=== PATIENT | female | born 1950 | race Caucasian/White ===

== ENCOUNTER 2016-09-28 12:41 | Day surgery (SDC) | payer OTHER ==
[2016-09-22 10:58] LABS: HEMATOCRIT 42.3 % (36.0-48.0); HEMOGLOBIN 14.7 g/dL (12.0-16.0)
[2016-09-22 11:08] LABS: BUN (BLOOD UREA NITROGEN) 7 MG/DL (6-23); CHLORIDE, SERUM 94 MMOL/L (96-112); CO2 (CARBON DIOXIDE) 29 MMOL/L (24-34); CREATININE 0.97 MG/DL (0.55-1.02); GFR AFRICAN AMERICAN 72 ML/MIN (>=60); GFR NON AFRICAN AMERICAN 62 ML/MIN (>=60); GLUCOSE, SERUM 180 MG/DL (60-99); POTASSIUM, SERUM 5.3 MMOL/L (3.5-5.3); SODIUM, SERUM 130 MMOL/L (135-148)
--- NOTE | ~2016-09-28 | OP ---
Record Of Operation [facility] [address] [place]. [address] NAME: ZACKERY GROVES : 54 STATUS : [facility]#: [id number] AGE: 65 ADM/REG DATE : 09/28/16 MR#: [id number] REPORT SERV DATE: 09/29/16 DICTATED BY: DEJA ESTRELLA DATE: 09/28/16 REPORT STATUS : Draft TRANSCRIBED BY: LINSEY DATE: 09/28/16 DATE OF PROCEDURE: PREPROCEDURE DIAGNOSIS: Partial thickness rectal prolapse. POSTPROCEDURE DIAGNOSIS: Partial thickness rectal prolapse. PROCEDURE: Delorme repair for partial thickness rectal prolapse or mucosectomy. DESCRIPTION OF PROCEDURE: The patient was taken to the operating room, induced under general anesthesia, placed into prone zoran-knife, prepped and draped in the usual sterile fashion. She had the anterior portion of rectal mucosa prolapsed at rest. After she was prepped and draped, pudendal nerve block was placed with a total of 10 mL of Tapa block solution as a pudendal nerve block. The anus was dilated using a small Hill-Patricio retractor and the excess mucosa was grasped using Ly clamps. Only the anterior portion could be prolapsed out the posterior portion of the rectal mucosa appeared to be intact and in place. So, for this reason the decision was made to do a Delorme, excising the mucosa only from right and left lateral the excess mucosa starting 1 cm from the dentate line. A Norris retractor was placed followed by six sharp blue hooks, Ly on the two edges and the leading edge. The mucosa was marked 1 cm at the anterior aspect. The dissection of the mucosa off the internal sphincter muscle until there was no further prolapsing tissue. At this point, 3 tacks were placed, 2-0 Vicryl UR6 through the mucosa, a bite of internal sphincter muscle and then mucosa and these were tied. Then there was a running stitch that ran from right to left, tying to the left stay suture to complete the repair. The patient was cleaned and dried after irrigation was used. There was excellent hemostasis. The Norris was removed followed by two 4x4s, peripad, and mesh panties. She tolerated the procedure well. KRANTHI/LINSEY Deja Estrella M.D. / [id number] CC: Avelina Taylor Susan Gaile Josh Worthington, M.D.
[~2016-09-28 12:41] MED LIST: AMARYL1 MG PO; CARDCD240 PO; GLUCOPHAGE1000 MG PO; LISINOPRIL40 MG PO; LOP25 PO; PRAV10 PO; PROTONIX PO
== END 2016-09-28 17:45 | disposition home or self-care (01) ==
LOC: SDC 12:41
PROVIDERS: Surgery
PROC: 0DQP0ZZ Repair Rectum, Open Approach (ICD-10-PCS; principal; 2016-09-28 14:30)
DX: K62.3 Rectal prolapse (principal); I10 Essential (primary) hypertension; E78.5 Hyperlipidemia, unspecified; F41.9 Anxiety disorder, unspecified; F32.9 Major depressive disorder, single episode, unspecified; E11.9 Type 2 diabetes mellitus without complications; K21.9 Gastro-esophageal reflux disease without esophagitis; R01.1 Cardiac murmur, unspecified
CPT/HCPCS: 80048; 82962; 85014; 85018; 88304; 93005; 94640; 94660; J0690; J1885; J2250; J2405; J2710; J2795; J3010